=== PATIENT | female | born 1930 | race Two or more races ===

== ENCOUNTER 2021-07-08 14:29 | Inpatient (IN) | payer OTHER ==
[~2021-07-08] VITALS: Ht 157.5 cm; Wt 45.4 kg
[2021-07-08] MEDS ORDERED: COZAAR100 MG (14:50)
[2021-07-08] MEDS ORDERED: CLONAZEPAM1 MG (14:51)
[2021-07-08] MEDS ORDERED: CITALOPRAM20 MG/10 M (14:51)
[2021-07-08] MEDS ORDERED: LEXAPRO5 MG (14:51)
[2021-07-08] MEDS ORDERED: SIMVASTATIN80 MG (14:51)
[2021-07-08] MEDS ORDERED: MEMANTINE HCL10 MG (14:51)
[2021-07-10] MEDS ORDERED: GLIMEPIRIDE2 M1 (09:19)
[2021-07-10] MEDS ORDERED: LEVOXYL50 MCG (09:19)
[2021-07-10] MEDS ORDERED: PRE PROTEIN1 EACH (09:19)
[2021-07-10] MEDS ORDERED: QUETIAPINE FUM100 MG (09:20)
== END 2021-07-13 22:28 | disposition home or self-care (01) | DRG 177 ==
LOC: ER 14:29 → MEDJ 07-09 00:07
PROVIDERS: ADMIT Internal Medicine; ATTEND Internal Medicine
PROC: 4A12X4Z Monitoring of Cardiac Electrical Activity, External Approach (ICD-10-PCS; principal; 2021-07-09)
PROC: BW24ZZZ Computerized Tomography (CT Scan) of Chest and Abdomen (ICD-10-PCS; 2021-07-09)
DX: U07.1 COVID-19 (principal); J12.82 Pneumonia due to coronavirus disease 2019; E16.1 Other hypoglycemia; E86.0 Dehydration; G30.8 Other Alzheimer's disease; F02.80 Dementia in other diseases classified elsewhere, unspecified severity, without behavioral disturbance, psychotic disturbance, mood disturbance, and anxiety